=== PATIENT | male | born 1990 | race Caucasian/White ===

== ENCOUNTER 2021-01-09 17:05 | Emergency (ER) | payer SELFPAY ==
[~2021-01-09] VITALS: Ht 182.9 cm; Wt 97.7 kg
[2021-01-09 19:43] LABS: BILIRUBIN,URINE SMALL (NEG); CLARITY,URINE TURBID; COLOR,URINE ORANGE; NITRITE,URINE NEGATIVE (NEG); PH,URINE 5.5 (<5.0-8.0); PROTEIN,URINE >=300 mg/dL (NEG-TRACE)
[2021-01-09 20:01] LABS: BACTERIA,URINE FEW /HPF (0-FEW); RBC,URINE TNTC /HPF (0-2); WBC,URINE TNTC /HPF (0-4)
[2021-01-09 22:19] LABS: BASO # 0.2 x10^3/uL (0.0-0.2); BASO % 1 % (0-3); EOS # 0.1 x10^3/uL (0.0-0.7); EOS % 0 % (0-3); HEMATOCRIT 40.6 % (39.0-53.0); LYMPH # 1.6 x10^3/uL (1.0-4.8); LYMPH % 6 % (24-48); MEAN CORPUSCULAR HEMOGLOBIN 30 pg (25-35); MEAN CORPUSCULAR HGB CONC 35 g/dL (31-37); MEAN CORPUSCULAR VOLUME 86 fL (79-100); MONO % 4 % (0-9); NEUT # 22.7 x10^3/uL (1.8-7.7); NEUT % 89 % (31-73); PLATELET COUNT 528 x10^3/uL (140-400); RED BLOOD COUNT 4.72 x10^6/uL (4.30-5.70); RED CELL DISTRIBUTION WIDTH 13.1 % (11.5-14.5); WHITE BLOOD COUNT 25.6 x10^3/uL (4.0-11.0)
[2021-01-09 22:33] LABS: CALCIUM 9.4 mg/dL (8.5-10.1); POTASSIUM 3.8 mmol/L (3.5-5.1)
[2021-01-09] MEDS: fentaNYL PF VIAL 100 MCG/2 ML VIAL IV PRN ×2 (22:39→23:39)
[2021-01-09 22:42] LABS: ALBUMIN 3.5 g/dL (3.4-5.0); ALBUMIN/GLOBULIN RATIO 0.8 (1.0-1.7); MAGNESIUM 2.1 mg/dL (1.8-2.4); TOTAL BILIRUBIN 0.5 mg/dL (0.2-1.0); TOTAL PROTEIN 8.1 g/dL (6.4-8.2)
--- NOTE | 2021-01-09 22:43 | PHYS DOC ---
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 States his pain has gotten worse over the past day, is worse when he is moving around or standing, but is improved if he is n ot. States he has had some penile discharge over the past week, with burning with urination. States he had intercourse with partner recently, does not have contact with them anymore. He reports shortly after the intercourse, he started to have some discomfort. Denies rash. Does state he has had a fever recently, with chills. States he has not taken any medications for it. Reports his right testicle just feels like it is much larger than his left and what it normally is. Denies penile lesions. Review of Systems: Review of Systems: Constitutional: Reports fever and chills recently. Eyes: Denies change in visual acuity. [] HENT: Denies nasal congestion or sore throat. [] Respiratory: Denies cough or shortness of breath. [] Cardiovascular: Denies chest pain or edema. [] GI: Denies abdominal pain, nausea, vomiting, bloody stools or diarrhea. [] : Reports penile discharge, urinary frequency and burning with urination] Musculoskeletal: Denies back pain or joint pain. [] Integument: Denies rash. [] Neurologic: Denies headache, focal weakness or sensory changes. [] Endocrine: Denies polyuria or polydipsia. [] Lymphatic: Denies swollen glands. [] Psychiatric: Denies depression or anxiety. [] Heart Score: C/O Chest Pain: N/A Risk Factors: Risk Factors: DM, Current or recent (<one month) smoker, HTN, HLP, family history of CAD, obesity. Risk Scores: Score 0 - 3: 2.5% MACE over next 6 weeks - Discharge Home Score 4 - 6: 20.3% MACE over next 6 weeks - Admit for Clinical Observation Score 7 - 10: 72.7% MACE over next 6 weeks - Early Invasive Strategies Current Medications: Current Medications Medications (Trade) Dose Ordered Sig/Alida Start Time Stop Time Status Last Admin Dose Admin Fentanyl Citrate (Fentanyl 2ml Vial) 50 mcg PRN Q1HR PRN 01/09/21 22:30 01/10/21 22:29 Allergies: Allergies: Allergies Coded Allergies Type Severity Reaction Last Updated Verified No Known Drug Allergies 01/09/21 No Physical Exam: PE: Constitutional: Well developed, well nourished, no acute distress, non-toxic appearance. [] HENT: Normocephalic, atraumatic, bilateral external ears normal, oropharynx moist, no oral exudates, nose normal. [] Eyes: PERRLA, EOMI, conjunctiva normal, no discharge. [] Neck: Normal range of motion, no tenderness, supple, no stridor. [] Cardiovascular:Heart rate regular rhythm, no murmur [] Lungs & Thorax: Bilateral breath sounds clear to auscultation [] Abdomen: Bowel sounds normal, soft, no tenderness, no masses, no pulsatile masses. [] Genitourinary: No penile lesions noted, circumcised penis. Left testicle without tenderness. Right testicle with posterior tenderness, feels firm. No lesions noted to scrotum. No hernia appreciated. Skin: Warm, dry, no erythema, no rash. [] Back: No tenderness, no CVA tenderness. [] Extremities: No tenderness, no cyanosis, no clubbing, ROM intact, no edema. [] Neurologic: Alert and oriented X 3, normal motor function, normal sensory function, no focal deficits noted. [] Psychologic: Affect normal, judgement normal, mood normal. [] Current Patient Data: Labs: Laboratory Tests Test 01/09/21 17:55 01/09/21 22:00 Urine Collection Type Unknown Urine Color Peach Urine Clarity Turbid Urine pH 5.5 (<5.0-8.0) Urine Specific [place] >=1.030 (1.000-1.030) Urine Protein >=300 mg/dL (NEG-TRACE) Urine Glucose (UA) Negative mg/dL (NEG) Urine Ketones (Stick) Trace mg/dL (NEG) Urine Blood Large (NEG) Urine Nitrite Negative (NEG) Urine Bilirubin Small (NEG) Urine Urobilinogen Dipstick 1.0 mg/dL (0.2 mg/dL) Urine Leukocyte Esterase Large (NEG) Urine RBC Tntc /HPF (0-2) Urine WBC Tntc /HPF (0-4) Urine Squamous Epithelial Cells Occ /LPF Urine Bacteria Few /HPF (0-FEW) White Blood Count 25.6 x10^3/uL (4.0-11.0) H Red Blood Count 4.72 x10^6/uL (4.30-5.70) Hemoglobin 14.0 g/dL (13.0-17.5) Hematocrit 40.6 % (39.0-53.0) Mean Corpuscular Volume 86 fL (79-100) Mean Corpuscular Hemoglobin 30 pg (25-35) Mean Corpuscular Hemoglobin Concent 35 g/dL (31-37) Red Cell Distribution Width 13.1 % (11.5-14.5) Platelet Count 528 x10^3/uL (140-400) H Neutrophils (%) (Auto) 89 % (31-73) H Lymphocytes (%) (Auto) 6 % (24-48) L Monocytes (%) (Auto) 4 % (0-9) Eosinophils (%) (Auto) 0 % (0-3) Basophils (%) (Auto) 1 % (0-3) Neutrophils # (Auto) 22.7 x10^3/uL (1.8-7.7) H Lymphocytes # (Auto) 1.6 x10^3/uL (1.0-4.8) Monocytes # (Auto) 1.0 x10^3/uL (0.0-1.1) Eosinophils # (Auto) 0.1 x10^3/uL (0.0-0.7) Basophils # (Auto) 0.2 x10^3/uL (0.0-0.2) Platelet Estimate Pending Laboratory Tests 01/09/21 22:00 Vital Signs: Vital Signs Date Time Temp Pulse Resp B/P (MAP) Pulse Ox O2 Delivery O2 Flow Rate FiO2 01/09/21 19:41 98.5 97 16 127/77 (94) 100 Room Air 98.5 EKG: EKG: [] Radiology/Procedures: Radiology/Procedures: Ultrasound the testicles and scrotum. CLINICAL HISTORY: Reason: Right testicular pain and swelling / Spl. Instructions: / History: COMPARISON: None available. TECHNIQUE: Ultrasound images of the scrotum was performed with warren-scale and color doppler. FINDINGS: The right testis measures 4.5 x 3.6 x 3.3 cm. The left testis measures 4 x 3.4 x 2.2 cm. Left testicle is mildly more prominent than on the right. Left epididymis is mildly prominent. There is increased flow in the right testicle and epididymis suggesting possible right epididymoorchitis. There is no pleural effusion. There is a small right hydrocele. Left testicle had a normal appearance. There is normal flow with color imaging and Doppler in the left testicle. Left epididymis was not enlarged. IMPRESSION: 1. No testicular mass noted. 2. Enlarged right epididymis with increased flow in the right epididymis and right testicle suggesting right epididymal orchitis. Electronically signed by: David Lopes MD (01/09/2021 10:58 PM) [facility] DICTATED and SIGNED BY: DAVID LOPES MD DATE: 01/09/21 [id number] [] Course & Med Decision Making: Course & Med Decision Making Pertinent Labs and Imaging studies reviewed. (See chart for details) [] Ultrasound noting right epididymitis without torsion, will treat patient with antibiotics at this time. Patient appears well, non toxic. afebrile at this time. Will recommend follow up with Urology within 7 days. Recommend safer sexual practices and notifying sexual partners of importance of being treated Patient agreeable with this plan with no further questions or concerns. Urine GC/clam unavailable at this time. Will have patient contacted if any change in results. Ariel Disclaimer: Ariel Disclaimer: This electronic medical record was generated, in whole or in part, using a voice recognition dictation system. Departure Departure Impression: Primary Impression: Epididymitis, right Additional Impression: Epididymo-orchitis Disposition: 01 HOME / SELF CARE / HOMELESS Condition: STABLE Referrals: NO PCP (PCP) Patient Instructions: Epididymitis Additional Instructions: As discussed, make sure you are taking the antibiotic as prescribed for the entire duration of the future to feel better. If you continue to have discomfort after 7 days contact Your primary care and try to get to see a urologist for further evaluation. Take Tylenol or ibuprofen as needed for discomfort. Notify any sexual partners that they should be tested and treated. If you are to have sexual activity in the next 2 weeks, make sure you are wearing a condom to prevent any further risk of spreading any STDs Scripts Doxycycline Hyclate (DOXYCYCLINE HYCLATE) 100 Mg Tablet 1 TAB PO BID, #20 TAB Prov: SAUL HARRELL APRN 01/10/21 SAUL HARRELL APRN Jan 09, 2021 22:43
[2021-01-09 23:00] LABS: % BANDS 7 % (0-9); % EOS 1 % (0-5); % LYMPHS 4 % (24-48); % MONOS 2 % (0-10); % SEGS 86 % (35-66)
[2021-01-09 23:01] LABS: PLT ESTIMATE INCREASED (ADEQUATE)
--- NOTE | 2021-01-09 23:01 | RAD ---
Ultrasound the testicles and scrotum. CLINICAL HISTORY: Reason: Right testicular pain and swelling / Spl. Instructions: / History: COMPARISON: None available. TECHNIQUE: Ultrasound images of the scrotum was performed with warren-scale and color doppler. FINDINGS: The right testis measures 4.5 x 3.6 x 3.3 cm. The left testis measures 4 x 3.4 x 2.2 cm. Left testicle is mildly more prominent than on the right. Left epididymis is mildly prominent. There is increased flow in the right testicle and epididymis suggesting possible right epididymoorchitis. T here is no pleural effusion. There is a small right hydrocele. Left testicle had a normal appearance. There is normal flow with color imaging and Doppler in the lef t testicle. Left epididymis was not enlarged. IMPRESSION: 1. No testicular mass noted. 2. Enlarged right epididymis with increased flow in the right epididymis and right testicle suggestin g right epididymal orchitis. Electronically signed by: David Israel MD (01/09/2021 10:58 PM) [facility]
[2021-01-09] MEDS ORDERED: cefTRIAXone IV Push 1 GM VIAL. IVP ONE ×2 (23:36→23:45)
[2021-01-10] MEDS ORDERED: DOXY100T PO (00:44)
[2021-01-10 00:46] VITALS: BP 121/2
[2021-01-10] MEDS: fentaNYL PF VIAL 100 MCG/2 ML VIAL IV PRN (01:08)
== END 2021-01-10 01:12 | disposition home or self-care (01) ==
LOC: ER 17:05
DX: N45.3 Epididymo-orchitis (principal); F17.200 Nicotine dependence, unspecified, uncomplicated
CPT/HCPCS: 36415; 76870; 80053; 81001; 83605; 83735; 85007; 85025; 87040; 87086; 87205; 87491; 87591; 96374; 96375; 96376; 99285; J0696; J3010